=== PATIENT | female | born 1990 | race Caucasian/White ===

== ENCOUNTER 2019-03-26 10:32 | Observation (INO) | payer MEDICAID ==
[~2019-03-26] VITALS: Ht 154.9 cm; Wt 67.1 kg
[2019-03-26] MEDS ORDERED: PREN1TAB78 MT (11:23)
[2019-03-26] MEDS ORDERED: LACTATED RINGERS 1,000 ML IV SCH (13:15)
== END 2019-03-26 14:00 | disposition home or self-care (01) ==
LOC: 8 EST LDRP 10:32
PROVIDERS: ADMIT Obstetrics & Gynecology; ATTEND Obstetrics & Gynecology
DX: O36.8130 Decreased fetal movements, third trimester, not applicable or unspecified (principal); Z3A.28 28 weeks gestation of pregnancy
CPT/HCPCS: 76805; 76818; 99281; G0378; 96360

== ENCOUNTER 2019-03-29 09:37 | Observation (INO) | payer MEDICAID ==
[~2019-03-29] VITALS: Ht 157.5 cm; Wt 72.6 kg
[~2019-03-29 09:37] MED LIST: PREN1TAB78 MT
== END 2019-03-29 10:45 | disposition home or self-care (01) ==
LOC: 8 EST LDRP 09:37
PROVIDERS: ADMIT Obstetrics & Gynecology; ATTEND Obstetrics & Gynecology
DX: O41.03X0 Oligohydramnios, third trimester, not applicable or unspecified (principal); Z3A.32 32 weeks gestation of pregnancy
CPT/HCPCS: 59025; 76815; 76818; 99281; G0378

== ENCOUNTER 2019-05-08 20:10 | Observation (INO) | payer MEDICAID ==
[~2019-05-08] VITALS: Ht 154.9 cm; Wt 72.6 kg
[2019-05-08] MEDS ORDERED: LACTATED RINGERS 1,000 ML IV STA (20:45)
[2019-05-08 20:56] LABS: CLARITY URINE TURBID (CLEAR); COLOR URINE RED (YELLOW); KETONES URINE 3+ (NEGATIVE); LEUKOCYTE ESTERASE URINE 1+ (NEGATIVE); NITRITE URINE NEGATIVE (NEGATIVE); OCCULT BLOOD URINE 3+ (NEGATIVE); PH URINE 5.5 (4.5-8.0); PROTEIN URINE 2+ (NEGATIVE); SPECIFIC GRAVITY URINE 1.023 (1.005-1.030); UROBILINOGEN URINE 0.2 E.U./dL (0.2-1.0)
[2019-05-08] MEDS ORDERED: TERBUTALINE SULFATE 1MG/ML VIAL SUBCUT NR (21:24)
[2019-05-08] MEDS ORDERED: TERBUTALINE SULFATE 1MG/ML VIAL ONE (21:28)
[2019-05-08] MEDS ORDERED: CEFAZOLIN 2,000 MG in DEXT 5% WATER 100 ML IV SCH (22:30)
[2019-05-08] MEDS ORDERED: BETAMETHASONE ACET/BETAMET 30 MG/5 ML VIAL IM SCH (22:30)
[2019-05-08 23:15] LABS: INR 0.9; PARTIAL THROMBOPLASTIN TIME 22.9 sec (23.4-31.0); PROTHROMBIN TIME 9.4 sec (9.6-11.0)
[2019-05-09 00:38] LABS: BASOPHILS % 0.3 % (0.0-2.0); EOSINOPHILS % 0.3 % (0.0-5.0); HEMATOCRIT. 32.7 % (36.0-48.0); HEMOGLOBIN. 10.9 g/dL (12.0-16.0); LYMPHOCYTES % 21.2 % (20.0-50.0); MEAN CORPUSCULAR HEMOGLOBIN 28.9 pg (28.0-32.0); MEAN CORPUSCULAR VOLUME 86.2 fL (81.0-99.0); MEAN PLATELET VOLUME 8.3 fl (7.4-10.4); MONOCYTES % 7.2 % (2.0-8.0); PLATELET 266 x1000/uL (130-400); RED BLOOD CELL COUNT 3.79 mill/uL (4.2-5.4); RED CELL DISTRIBUTION WIDTH 13.2 % (11.6-14.6)
[2019-05-09] MEDS ORDERED: CEPH-569 MT (00:59)
[2019-05-09] MEDS ORDERED: LACTATED RINGERS 1,000 ML IV STA (21:45)
== END 2019-05-09 01:00 | disposition home or self-care (01) ==
LOC: 8 EST LDRP 20:10
PROVIDERS: ADMIT Obstetrics & Gynecology; ATTEND Obstetrics & Gynecology
DX: O62.9 Abnormality of forces of labor, unspecified (principal); O23.43 Unspecified infection of urinary tract in pregnancy, third trimester; R31.9 Hematuria, unspecified; Z3A.34 34 weeks gestation of pregnancy
CPT/HCPCS: 36415; 76770; 76805; 76818; 81003; 85025; 85610; 85730; 87086; 96372; 99281; G0378; J0690; J0702; J3105; J7060

== ENCOUNTER 2019-06-09 03:47 | Inpatient (IN) | payer MEDICAID ==
[~2019-06-09] VITALS: Ht 154.9 cm; Wt 73.9 kg
[~2019-06-09 03:47] MED LIST changes: +CEPH-569 MT
[2019-06-09] MEDS ORDERED: DEXT 5%/LR + PITOCIN 20UNITS/L 1,000 ML IV SCH ×2 (04:17→08:24)
[2019-06-09] MEDS ORDERED: LIDOCAINE HCL 1% 20ML VIAL (Pyxis) INJ INFIL SCH (04:30)
[2019-06-09] MEDS ORDERED: NALOXONE HCL 0.4 MG/ML 1ML VIAL IM PRN (04:30)
[2019-06-09] MEDS ORDERED: METHYLERGONOVINE MALEATE 0.2 MG/ML IM PRN (04:30)
[2019-06-09] MEDS ORDERED: CARBOPROST TROMETHAMINE 250 MCG/ML AMPUL IM PRN (04:30)
[2019-06-09] MEDS ORDERED: MISOPROSTOL 100MCG TABLET VG SCH (04:30)
[2019-06-09] MEDS ORDERED: BUTORPHANOL TARTRATE 2 MG/ML VIAL IV PRN (04:30)
[2019-06-09 05:18] LABS: BASOPHILS % 0.4 % (0.0-2.0); EOSINOPHILS % 0.7 % (0.0-5.0); LYMPHOCYTES % 23.1 % (20.0-50.0); MEAN CORPUSCULAR HEMOGLOBIN 28.3 pg (28.0-32.0); MEAN CORPUSCULAR VOLUME 84.6 fL (81.0-99.0); MEAN PLATELET VOLUME 8.1 fl (7.4-10.4); MONOCYTES % 6.1 % (2.0-8.0); NEUTROPHILS % 69.7 % (40.0-76.0); PLATELET 278 x1000/uL (130-400); RED CELL DISTRIBUTION WIDTH 14.2 % (11.6-14.6)
[2019-06-09 05:21] LABS: CLARITY URINE CLOUDY (CLEAR); COLOR URINE YELLOW (YELLOW); KETONES URINE 1+ (NEGATIVE); LEUKOCYTE ESTERASE URINE TRACE (NEGATIVE); NITRITE URINE NEGATIVE (NEGATIVE); OCCULT BLOOD URINE 1+ (NEGATIVE); PROTEIN URINE TRACE (NEGATIVE); SPECIFIC GRAVITY URINE 1.027 (1.005-1.030)
[2019-06-09 05:27] LABS: INR 0.9; PARTIAL THROMBOPLASTIN TIME 23.6 sec (23.4-31.0); PROTHROMBIN TIME 9.3 sec (9.6-11.0)
[2019-06-09] MEDS: LACTATED RINGERS 1,000 ML IV SCH ×3 (05:27→07:31)
[2019-06-09 05:34] LABS: *AMPHETAMINES SCREEN URINE NEGATIVE (NEGATIVE); *BARBITURATES SCREEN URINE NEGATIVE (NEGATIVE); *BENZODIAZEPINES SCREEN URINE NEGATIVE (NEGATIVE); *COCAINE SCREEN URINE NEGATIVE (NEGATIVE); METHADONE URINE SCREEN NEGATIVE (NEGATIVE)
[2019-06-09 05:35] LABS: CANNABINOID URINE SCREEN NEGATIVE (NEGATIVE); OPIATES URINE SCREEN NEGATIVE (NEGATIVE); PHENCYCLIDINE URINE SCREEN NEGATIVE (NEGATIVE)
[2019-06-09] MEDS ORDERED: ROPIVACAINE HCL 10MG/ML 20 ML VIAL EPI ONE (06:45)
[2019-06-09] MEDS ORDERED: ROPIVACAINE HCL/PF EPIDURAL 200 ML EPI PRN (07:15)
[2019-06-09] MEDS ORDERED: RHO(D) IMMUNE GLOBULIN 300 MCG/SYR IM PRN (08:30)
[2019-06-09] MEDS ORDERED: BENZOCAINE/LANOLIN/ALOE VERA SPRAY TOP PRN (08:30)
[2019-06-09] MEDS ORDERED: IBUPROFEN 400MG TABLET PO PRN (08:30)
[2019-06-09 09:55] LABS: HEPATITIS B SURFACE ANTIGEN NEGATIVE
[2019-06-09 10:30] VITALS: BP 108/66
[2019-06-09 11:45] VITALS: BP 115/70
[2019-06-09 17:05] VITALS: BP 109/85
[2019-06-09] MEDS: IBUPROFEN 800MG TABLET PO PRN (17:35)
[2019-06-09 22:00] VITALS: BP 112/76
[2019-06-10 06:00] VITALS: BP 117/76
[2019-06-10 08:00] VITALS: BP 121/85
[2019-06-10 08:37] LABS: BASOPHILS % 0.4 % (0.0-2.0); EOSINOPHILS % 0.9 % (0.0-5.0); HEMATOCRIT. 29.6 % (36.0-48.0); HEMOGLOBIN. 9.8 g/dL (12.0-16.0); LYMPHOCYTES % 22.8 % (20.0-50.0); MEAN CORPUSCULAR VOLUME 84.9 fL (81.0-99.0); MEAN PLATELET VOLUME 8.2 fl (7.4-10.4); MONOCYTES % 7.6 % (2.0-8.0); NEUTROPHILS % 68.3 % (40.0-76.0); PLATELET 257 x1000/uL (130-400); RED BLOOD CELL COUNT 3.49 mill/uL (4.2-5.4); RED CELL DISTRIBUTION WIDTH 14.5 % (11.6-14.6)
[2019-06-10] MEDS ORDERED: FENTANYL CITRATE/PF 50MCG/ML 2ML VIAL ONE ×2 (09:44→11:57)
[2019-06-10] MEDS ORDERED: LIDOCAINE HCL 2%/EPINEPHRINE 1:100,000 20 ML VIAL INFIL ONE (10:07)
[2019-06-10] MEDS ORDERED: PROPOFOL 200MG/20ML VIAL IV ONE (10:55)
[2019-06-10] MEDS ORDERED: MIDAZOLAM HCL 2 MG/2 ML VIAL ONE ×2 (10:55→11:49)
[2019-06-10] MEDS ORDERED: LIDOCAINE HCL/PF 1% 10 MG/ML 5ML VIAL ONE (10:55)
[2019-06-10] MEDS ORDERED: BUPIVACAINE HCL/PF 0.25% (2.5MG/ML) 10ML ONE (11:57)
[2019-06-10] MEDS ORDERED: ONDANSETRON HCL 4MG/2ML INJ ONE (12:04)
[2019-06-10 14:05] VITALS: BP 111/75
[2019-06-10 16:00] VITALS: BP 113/82
[2019-06-10] MEDS ORDERED: LANOLIN OINT 7GM TUBE TOP PRN (16:00)
[2019-06-10] MEDS: IBUPROFEN 800MG TABLET PO PRN (17:41)
[2019-06-10 19:25] VITALS: BP 120/83
[2019-06-11 04:00] VITALS: BP 121/76
[2019-06-11 08:37] VITALS: BP 108/71
[2019-06-11] MEDS: IBUPROFEN 800MG TABLET PO PRN (09:15)
== END 2019-06-11 09:40 | disposition home or self-care (01) | DRG 541 ==
LOC: OBSVTOIN 03:47 → 8 EST LDRP 03:47 → 8EST NSY 09:29 → 8 EST LDRP 09:29 → 8EST 06-10 14:02
PROVIDERS: ADMIT Obstetrics & Gynecology; ATTEND Obstetrics & Gynecology
PROC: 10E0XZZ Delivery of Products of Conception, External Approach (ICD-10-PCS; principal; 2019-06-09)
PROC: 0W8NXZZ Division of Female Perineum, External Approach (ICD-10-PCS; 2019-06-09)
PROC: 0UB70ZZ Excision of Bilateral Fallopian Tubes, Open Approach (ICD-10-PCS; 2019-06-10)
DX: O80 Encounter for full-term uncomplicated delivery (principal); Z30.2 Encounter for sterilization; Z37.0 Single live birth; Z3A.39 39 weeks gestation of pregnancy; Z82.49 Family history of ischemic heart disease and other diseases of the circulatory system; Z83.3 Family history of diabetes mellitus; Z87.442 Personal history of urinary calculi; Z90.49 Acquired absence of other specified parts of digestive tract
CPT/HCPCS: 36415; 80305; 86592; 86703; 86762; 86850; 86900; 87340; 88302; 99281; G0378; J2250; J2405; J2590; J2704; J2795; J3010; J3490